=== PATIENT | male | born 1955 | race Caucasian/White ===

== ENCOUNTER 2021-12-07 09:48 | Emergency (ER) | payer MEDICARE ==
[~2021-12-07] VITALS: Ht 175.3 cm; Wt 86.6 kg
[2021-12-07 10:48] LABS: BASOPHIL 0.2 % (0-2); EOSINOPHIL 0 % (0-7); HCT 42.5 % (42.0-52.0); HGB 14.3 g/dl (13.2-18.0); LYMPHOCYTE 8.3 % (15-48); MCH 31.2 pg (25.0-31.0); MCHC 33.6 g/dL (32.0-36.0); MCV 92.8 fL (78.0-100.0); MONOCYTE 4.6 % (0-12); MPV 8.9 fL (6.0-9.5); NEUTROPHIL 86.5 % (41-80); NRBC 0; PLT 307 K/uL (150-400); RBC 4.58 M/uL (4.70-6.00); WBC 11.3 K/uL (4.0-10.5)
[2021-12-07 11:02] LABS: BILIRUBIN - TOTAL 0.5 mg/dL (0.2-1.0); BUN/CREAT RATIO (CALC) 19.5 RATIO; CREATININE 0.77 mg/dL (0.67-1.17); GLOBULIN (CALCULATION) 4.1 g/dL; POTASSIUM 4.1 mmol/L (3.5-5.1); TOTAL PROTEIN 8.1 g/dL (6.4-8.2)
[2021-12-07 12:08] LABS: INR 1.09 (0.9-1.2); PROTHROMBIN TIME 13.5 SECONDS (11.8-13.4)
[2021-12-07 12:09] LABS: PTT 26.6 SECONDS (24.4-34.7)
== END 2021-12-07 11:50 | disposition other institution (70) ==
LOC: FER 09:48
PROVIDERS: Emergency Medicine
DX: I62.9 Nontraumatic intracranial hemorrhage, unspecified (principal); I10 Essential (primary) hypertension; Z79.899 Other long term (current) drug therapy; Z20.822 Contact with and (suspected) exposure to COVID-19; Z28.311 Partially vaccinated for COVID-19
CPT/HCPCS: 36415; 70450; 71045; 80053; 83605; 85025; 85610; 85730; J2405; U0002